=== PATIENT | male | born 1940 | race Caucasian/White ===

== ENCOUNTER 2022-07-08 12:52 | Inpatient (IN) | payer OTHER ==
[~2022-07-08] VITALS: Ht 188 cm; Wt 109.3 kg
--- NOTE | 2022-07-08 12:58 | NUR ---
BIB [facility] FROM HOME,C/O ABDOMINAL PAIN AND CAREGIVER NOTED BLOOD IN HIS STOOL TODAY
--- NOTE | 2022-07-08 13:15 | NUR ---
blood sample obtained by lab
--- NOTE | 2022-07-08 13:28 | NUR ---
established iv line 20 g right hand
[2022-07-08] MEDS ORDERED: IV NS 0.9% 1,000 ML IV ONE ×2 (13:30→15:00)
[2022-07-08 13:51] LABS: BASOPHILS % (AUTO) 0.1 % (0.0-2.0); HEMATOCRIT 44 % (39-51); HEMOGLOBIN 14.6 g/dL (13.5-17.5); LYMPHOCYTES # (AUTO) 0.4 K/uL (0.8-4.8); LYMPHOCYTES % (AUTO) 2.9 % (20.0-44.0); MEAN CORPUSCULAR HGB CONC 33 g/dl (31.0-36.0); MEAN CORPUSCULAR VOLUME 88 fL (80-96); MONOCYTES % (AUTO) 6.9 % (2.0-12.0); NEUTROPHILS # (AUTO) 12.9 K/uL (1.8-8.9); NEUTROPHILS % (AUTO) 90.1 % (43.0-81.0); PLATELET COUNT (AUTO) 228 K/uL (150-450); RED BLOOD CELL COUNT(AUTO) 5.04 MIL/uL (4.5-6.0); WHITE BLOOD COUNT (AUTO) 14.4 K/uL (4.3-11.0)
[2022-07-08 14:07] LABS: ALANINE AMINOTRANSFERASE 36 U/L (12-78); ALBUMIN 3.2 g/dL (3.4-5.0); ALKALINE PHOSPHATASE 51 U/L (46-116); ASPARTATE AMINOTRANSFERASE 38 U/L (15-37); BILIRUBIN,DIRECT 0.3 mg/dL (0.0-0.2); BILIRUBIN,TOTAL 0.7 mg/dL (0.2-1.0); CARBON DIOXIDE 23 mmol/L (21-32); CHLORIDE 98 mmol/L (98-107); GLUCOSE 254 mg/dL (74-106); LIPASE 90 U/L (73-393); POTASSIUM 4.6 mmol/L (3.5-5.1); SODIUM SERUM 131 mmol/L (136-145); TOTAL PROTEIN, SERUM 7.3 g/dL (6.4-8.2); UREA NITROGEN, BLOOD 28 mg/dL (7-18)
--- NOTE | 2022-07-08 14:49 | NUR ---
OK PER DR. WOLFE TO PROCEED W/ CT SCAN; RADIOLOGY MADE AWARE.
--- NOTE | 2022-07-08 14:52 | NUR ---
personal loan specialist GAVINO [phone]
[2022-07-08] MEDS ORDERED: IOHEXOL-300 100 ML VIAL IV ONE (14:55)
[2022-07-08] MEDS ORDERED: IV NS 0.9% 250 ML IV ONE (14:56)
--- NOTE | 2022-07-08 15:10 | NUR ---
taken to ct
--- NOTE | 2022-07-08 16:54 | NUR ---
covid swab taken sent to lab
[2022-07-08] MEDS ORDERED: FLAGYL/NS RTU 500 MG/100 ML PIGGYBACK IV ONE (17:00)
[2022-07-08] MEDS ORDERED: CIPROFLOXACIN IV RTU 400 MG in PREMIX 1 EA IV SCH (17:00)
--- NOTE | 2022-07-08 17:25 | NUR ---
CALLED [facility] [phone] DR. CASTILLO WILL CALL US BACK.
--- NOTE | 2022-07-08 17:26 | NUR ---
PT IS COVID POSITIVE, MADE AWARE
--- NOTE | 2022-07-08 18:47 | NUR ---
bright red rectal bleeding noted md notified
--- NOTE | 2022-07-08 19:05 | NUR ---
GAVINO CASTILLO () [phone], FOR UPDATES
--- NOTE | 2022-07-08 19:35 | NUR ---
RECEIVED REPORT FROM KEEGAN LOPEZ. PATIENT IS COVID POSITIVE. CAME WITH CC OF ABDOMINAL PAIN AND BLOODY STOOL. PATIENT IS AAOX4. ABLE TO MAKE NEEDS KNOWN. NO RECTAL BLEED UPON ASSESSMENT. WITH IV CANNULA G20 ON RIGHT FA. VITALS CHECKED.
--- NOTE | 2022-07-08 21:55 | NUR ---
RECIEVED AUTH FROM [facility] #[id number] DR CASTILLO AUTHORIZING MD
[2022-07-08 22:25] VITALS: BP 124/73
--- NOTE | 2022-07-08 22:42 | NUR ---
RECIEVED BED 117-2
[2022-07-08] MEDS ORDERED: ACETAMINOPHEN 325 MG TABLET PO PRN (23:00)
[2022-07-08] MEDS ORDERED: DEXAMETHASONE SOD PHOSPHATE 10 MG/ML VIAL IV ONE (23:00)
[2022-07-08] MEDS ORDERED: MORPHINE SULFATE INJ 2 MG/ML DISP.SYRIN IV PRN (23:00)
[2022-07-08] MEDS ORDERED: ONDANSETRON HCL/PF 4 MG/2 ML VIAL IVP PRN (23:00)
[2022-07-08] MEDS ORDERED: hydrALAZINE HCL IV 20 MG VIAL IV PRN (23:00)
[2022-07-08] MEDS ORDERED: CEFEPIME 1 GM in IV D5W 50 ML IV ONE (23:00)
[2022-07-08] MEDS ORDERED: ALBUTEROL FS 2.5 MG/0.5 ML VIAL.NEB NEB PRN (23:00)
[2022-07-08] MEDS ORDERED: PLEC3TAB PO (23:07)
[2022-07-08] MEDS ORDERED: INSU100V3 SQ ×2 (23:07)
[2022-07-08] MEDS ORDERED: LISI-768 PO (23:07)
[2022-07-08] MEDS ORDERED: ASPI-1169 PO (23:07)
[2022-07-08] MEDS ORDERED: NPH,100V SQ ×2 (23:07)
[2022-07-08] MEDS ORDERED: MIRT-119 PO (23:07)
[2022-07-08] MEDS ORDERED: GLIP10TA11 PO (23:07)
[2022-07-08] MEDS ORDERED: ROSU10TA2 PO (23:07)
[2022-07-08] MEDS ORDERED: FINA5TAB4 PO (23:07)
--- NOTE | 2022-07-08 23:15 | NUR ---
GUEST SERVICE HOST AT PT'S BEDSIDE
--- NOTE | 2022-07-08 23:21 | NUR ---
REPORT GIVEN TO ISAAC BEAR
[2022-07-08] MEDS ORDERED: DEXTROSE 50%-WATER 50 ML DISP.SYRIN IV PRN (23:30)
[2022-07-08] MEDS ORDERED: *INSULIN REGULAR(HUMULIN R)HUM 100 UNIT/ML VIAL SQ PRN (23:30)
--- NOTE | 2022-07-08 23:41 | NUR ---
TRANSFERRED PT TO [facility]
[2022-07-09] MEDS ORDERED: IPRATROPIUM/ALBUTEROL INHALER IH SCH
[2022-07-09] MEDS ORDERED: PANTOPRAZOLE 40 MG VIAL IV SCH
--- NOTE | 2022-07-09 00:10 | NUR ---
RN NOTE RECEIVED PT FROM ER VIA [facility] WITH DX OF COVID 19 AND DIVERTICULITIS. PT IS A/0 X 4, ABLE TO VERBALIZE NEEDS. ON NC @ 2L TOLERATING WELL, WITH O2 SAT OF 97%. NO SOB, NO PAIN. IV ACCESS NOTED ON R HAND, #20g. PATENT, INTACT AND FLUSHES WELL. SKIN IS INTACT, NO OPEN WOUNDS NOTED. PT IS DNR/DNI. ALL SAFETY MEASURES IN PLACE. BED LOCKED, IN LOW POSITION. BED ALARM ON. CALL LIGHT WITHIN REACH. WILL CONTINUE TO MONITOR PT.
--- NOTE | 2022-07-09 00:30 | NUR ---
RN NOTE CALLED , GAVINO PER PT'S REQUEST. GAVE HER UPDATE REGARDING PT'S CONDITION. HUNG NS @ 75 CC/HR PER DOCTOR'S ORDER.
[2022-07-09] MEDS ORDERED: CEFEPIME 1 GM VIAL ONE (01:23)
--- NOTE | 2022-07-09 06:42 | NUR ---
RN NOTE PT SLEPT THROUGH THE NIGHT. REMAINED STABLE, VS WNL. PT HAD 2 BLOODY URINE NOTED. NO COMPLAINTS OF PAIN. WILL ENDORSE TO AM SHIFT NURSE FOR JACK.
--- NOTE | 2022-07-09 07:20 | NUR ---
OFFAL BALER OPENING NOTE: RECEIVED PT. IN BED, AWAKE, AOX4. NO COMPLAINTS OF PAIN/DISCOMFORT AT THIS TIME. ON O2 VIA NASAL CANNULA AT 2 L/MIN, NO S/S OF RESPIRATORY DISTRESS. AUTOMOTIVE PARTS PERSON READS NSR AT THIS TIME. ON DIAPER. HEAD BAKER RN NOTED HEMATURIA. WILL CONTINUE TO MONITOR URINE THIS SHIFT. SKIN INTACT. IV ACCESS ON R HAND #20G, WITH NS RUNNING AT 75 ML/HR. PATENT AND SALINE LOCKED. IV DRESSING C/D/I WITH NO S/S OF INFILTRATION NOTED. SAFETY MEASURES IN PLACE: BED IN LOWEST AND LOCKED POSITION, HOB ELEVATED AT 30 DEGREES, BED ALARM ON, CALL LIGHT WITHIN REACH. WILL ENCOURAGE FREQUENT REPOSITIONING IN BED AT LEAST Q2H. WILL CONTINUE TO MONITOR FOR ANY CHANGES.
[2022-07-09] MEDS ORDERED: INSULIN REGULAR, HUMAN 100 UNIT/ML 3 ML VIAL SQ SCH (07:30)
[2022-07-09 07:50] LABS: HEMATOCRIT 38 % (39-51); LYMPHOCYTES # (AUTO) 0.4 K/uL (0.8-4.8); LYMPHOCYTES % (AUTO) 4.9 % (20.0-44.0); MEAN CORPUSCULAR HGB CONC 34 g/dl (31.0-36.0); MEAN CORPUSCULAR VOLUME 87 fL (80-96); MONOCYTES # (AUTO) 0.2 K/uL (0.1-1.30); MONOCYTES % (AUTO) 1.7 % (2.0-12.0); NEUTROPHILS # (AUTO) 8.4 K/uL (1.8-8.9); NEUTROPHILS % (AUTO) 93.4 % (43.0-81.0); PLATELET COUNT (AUTO) 179 K/uL (150-450); RED BLOOD CELL COUNT(AUTO) 4.41 MIL/uL (4.5-6.0)
[2022-07-09 07:55] LABS: ALANINE AMINOTRANSFERASE 28 U/L (12-78); ALBUMIN 2.8 g/dL (3.4-5.0); ALKALINE PHOSPHATASE 41 U/L (46-116); ASPARTATE AMINOTRANSFERASE 39 U/L (15-37); BILIRUBIN,TOTAL 0.5 mg/dL (0.2-1.0); CALCIUM, SERUM 8.3 mg/dL (8.5-10.1); CARBON DIOXIDE 25 mmol/L (21-32); CHLORIDE 104 mmol/L (98-107); CREATININE 1.4 mg/dL (0.6-1.3); GLUCOSE 226 mg/dL (74-106); PHOSPHORUS 4.1 mg/dL (2.5-4.9); POTASSIUM 4.6 mmol/L (3.5-5.1); SODIUM SERUM 134 mmol/L (136-145); TOTAL PROTEIN, SERUM 6.8 g/dL (6.4-8.2); UREA NITROGEN, BLOOD 28 mg/dL (7-18)
[2022-07-09] MEDS: BLOOD SUGAR DIAGNOSTIC 1 EACH STRIP IN SCH ×3 (08:12→17:52)
--- NOTE | 2022-07-09 08:18 | NUR ---
SERGER NOTE: HEPARIN 5,000 UNITS SQ SCHEDULED AT 0900 WILL BE HELD DUE TO HEMATURIA NOTED IN PT.'S DIAPER. WILL CONTINUE TO MONITOR PT. FOR S/S OF BLEEDING.
[2022-07-09] MEDS: INSULIN REGULAR, HUMAN 100 UNIT/ML 3 ML VIAL SQ PRN ×3 (08:22→17:54)
[2022-07-09] MEDS ORDERED: HEPARIN SODIUM, PORCINE 5000 UNITS/1 ML VIAL SQ SCH (09:00)
[2022-07-09] MEDS: IV NS 0.9% 1,000 ML IV SCH ×2 (12:32)
--- NOTE | 2022-07-09 19:20 | NUR ---
MS RN CLOSING NOTE: PT. REMAINS IN BED, AWAKE, AOX4. NO COMPLAINTS OF PAIN/DISCOMFORT AT THIS TIME. ON O2 VIA NASAL CANNULA AT 2 L/MIN, NO S/S OF RESPIRATORY DISTRESS THROUGHOUT SHIFT. ON DIAPER WITH 2X YELLOW VOID, NO HEMATURIA NOTED THIS SHIFT AND 1 BROWN SOFT BM. SKIN INTACT. IV ACCESS ON R HAND #20G, WITH NS RUNNING AT 75 ML/HR. IV DRESSING C/D/I WITH NO S/S OF INFILTRATION NOTED. SAFETY MEASURES MAINTAINED: BED IN LOWEST AND LOCKED POSITION, HOB ELEVATED AT 30 DEGREES, BED ALARM ON, CALL LIGHT WITHIN REACH. ENCOURAGED FREQUENT REPOSITIONING IN BED AT LEAST Q2H. ENDORSED CONTINUITY OF CARE TO LIBRARY TECHNOLOGY INSTRUCTOR RN.
[2022-07-09] MEDS ORDERED: ATOR40TA PO (20:39)
[2022-07-09] MEDS ORDERED: FINA5TAB3 PO (20:39)
[2022-07-09] MEDS ORDERED: CEFE1FRO IV (20:39)
[2022-07-09] MEDS ORDERED: LISI-768 PO (20:39)
[2022-07-09] MEDS ORDERED: HEPA50008 SQ (20:39)
[2022-07-09] MEDS ORDERED: INSU100V28 SQ (20:39)
[2022-07-09] MEDS ORDERED: ONDA4VIA23 IVP (20:39)
[2022-07-09] MEDS ORDERED: PANT40VI IV (20:39)
[2022-07-09] MEDS ORDERED: MIRT-121 PO (20:39)
[2022-07-09] MEDS ORDERED: ASPI-1169 PO (20:39)
[2022-07-09] MEDS ORDERED: Ipratropium/Albuterol Sulfate IH (20:39)
[2022-07-09] MEDS ORDERED: NPH.100V2 SQ (20:39)
[2022-07-09] MEDS ORDERED: ALBU2.5V13 NEB (20:39)
[2022-07-09] MEDS ORDERED: HYDR20VI4 IV (20:39)
[2022-07-09] MEDS ORDERED: ACET325T53 PO (20:39)
--- NOTE | 2022-07-09 20:53 | NUR ---
RN NOTE LATEST V/S REPORTED TO BASILIO CM 110/83, 98.0, 100% ON 2L NC, AND RR 18.
--- NOTE | 2022-07-09 21:10 | NUR ---
RN NOTE CALLED JAQUELIN ALLISON FROM [facility] TO GIVE REPORT IN REGARDS TO THIS PT TRANSFER TO [facility], RN NOT AVAILABLE, AWAITING FOR FOR CALL BACK.
--- NOTE | 2022-07-09 21:15 | NUR ---
RN NOTE PT TRANSFERRED TO [facility]. PT ON STABLE CONDITION, A/O X4, REPORT GIVEN TO ANDRY.
--- NOTE | 2022-07-09 21:25 | NUR ---
RN CLOSING NOTE REPORT GIVEN TO JAQUELIN ALLISON AT [facility] FOR CONTINUITY OF CARE.
[2022-07-09] MEDS ORDERED: LISINOPRIL (5MG) 5 MG TABLET PO SCH (22:00)
[2022-07-09] MEDS ORDERED: Medication Not On Formulary EA (Plecanatide (Trulance) 3 MG) PO SCH (22:00)
[2022-07-09] MEDS ORDERED: INSULIN NPH, HUMAN ISOPHANE 100 UNIT/ML VIAL SQ SCH (22:00)
[2022-07-09] MEDS ORDERED: MIRTAZAPINE 15 MG TABLET PO SCH (22:00)
[2022-07-09] MEDS ORDERED: FINASTERIDE (5 MG) 5 MG TABLET PO SCH (22:00)
[2022-07-09] MEDS ORDERED: ATORVASTATIN 40 MG TABLET PO SCH (22:00)
[2022-07-10] MEDS ORDERED: CEFEPIME 2 GM in IV D5W 100 ML IV SCH (03:00)
[2022-07-10] MEDS ORDERED: ASPIRIN 81 MG TAB.CHEW PO SCH (09:00)
== END 2022-07-09 21:55 | disposition home or self-care (01) | DRG 871 ==
LOC: ER 12:56 → TELE1 22:44 → MEDSG1 07-09 13:00
PROVIDERS: ADMIT Internal Medicine; ATTEND Nurse Practitioner Acute Care
DX: A41.89 Other specified sepsis (principal); J15.9 Unspecified bacterial pneumonia; N17.0 Acute kidney failure with tubular necrosis; U07.1 COVID-19; E87.1 Hypo-osmolality and hyponatremia; K57.32 Diverticulitis of large intestine without perforation or abscess without bleeding; J98.11 Atelectasis; Z66 Do not resuscitate; E11.22 Type 2 diabetes mellitus with diabetic chronic kidney disease; E11.65 Type 2 diabetes mellitus with hyperglycemia; Z79.4 Long term (current) use of insulin; Z79.01 Long term (current) use of anticoagulants; Z79.82 Long term (current) use of aspirin; Z79.51 Long term (current) use of inhaled steroids; I12.9 Hypertensive chronic kidney disease with stage 1 through stage 4 chronic kidney disease, or unspecified chronic kidney disease; E78.5 Hyperlipidemia, unspecified; Z90.49 Acquired absence of other specified parts of digestive tract; N18.9 Chronic kidney disease, unspecified; N40.0 Benign prostatic hyperplasia without lower urinary tract symptoms; E86.0 Dehydration; E66.9 Obesity, unspecified; Z79.899 Other long term (current) drug therapy; E27.8 Other specified disorders of adrenal gland; K76.0 Fatty (change of) liver, not elsewhere classified; K80.20 Calculus of gallbladder without cholecystitis without obstruction; N28.1 Cyst of kidney, acquired
CPT/HCPCS: 36415; 71045-TC; 76770-TC; 80048-TC; 80053-TC; 80076-TC; 82962-TC; 83605-TC; 83690-TC; 83735-TC; 84100-TC; 85025-TC; 85378-TC; 85730-TC; 86140-TC; 87081-TC; 94799-TC; A4216; C9113; C9803; G0378; J0692; J0744; J1100; J1644; J1815; J3490; J7030; J7050; J7060; Q9967